=== PATIENT | female | born 2000 | race Caucasian/White ===

== ENCOUNTER 2024-01-18 06:35 | Inpatient (IN) | payer OTHER ==
[2024-01-18] MEDS ORDERED: Ondansetron 4 MG/2 ML SDV IVPUSH PRN (06:42)
[2024-01-18] MEDS ORDERED: Sodium Chloride 0.9% 10 ML Syringe FLUSH PRN (06:42)
[2024-01-18] MEDS ORDERED: Lactated Ringers 1,000 ML IV SCH (06:45)
[2024-01-18 07:12] LABS: BASOPHILS ABSOLUTE AUTO 0.1 K/mm3 (0.0-0.2); BASOPHILS PERCENT AUTO 0.3 % (0.0-1.0); EOSINOPHILS ABSOLUTE AUTO 0.2 K/mm3 (0.0-0.4); EOSINOPHILS PERCENT AUTO 1.2 % (0.0-6.0); HEMATOCRIT 37.5 % (37.0-47.0); HEMOGLOBIN 12.7 gm/dl (12.0-16.0); IMMATURE GRAN ABSOLUTE AUTO 0.08 K/mm3 (0.00-0.05); IMMATURE GRAN PERCENT AUTO 0.5 % (0.0-0.4); LYMPHOCYTES ABSOLUTE AUTO 3.2 K/mm3 (1.0-4.8); LYMPHOCYTES PERCENT AUTO 21.2 % (24.0-44.0); MEAN CORPUSCULAR HEMOGLOBIN 30.8 pg (28.0-32.0); MEAN CORPUSCULAR HGB CONC 33.9 g/dl (32.0-36.0); MEAN CORPUSCULAR VOLUME 90.8 fl (83.0-99.0); MEAN PLATELET VOLUME 10.6 fl (9.4-12.3); MONOCYTES ABSOLUTE AUTO 1.6 K/mm3 (0.0-0.8); MONOCYTES PERCENT AUTO 10.6 % (0.0-8.0); NEUTROPHILS PERCENT AUTO 66.2 % (41.0-71.0); PLATELET COUNT,PLT 225 K/mm3 (150-400); RED BLOOD CELL COUNT 4.13 M/mm3 (4.10-5.30); WHITE BLOOD CELL COUNT,WBC 15.09 K/mm3 (3.9-11.3)
[2024-01-18 07:30] LABS: SLIDE REVIEW ABNORMAL SMEAR
[2024-01-18] MEDS: Nalbuphine 10 MG/ML Syringe IVPUSH PRN (11:25)
[2024-01-18] MEDS: Sodium Chloride 0.9% 10 ML Syringe FLUSH SCH (11:42)
[2024-01-18] MEDS ORDERED: Acetaminophen 325 MG Tab PO PRN (15:23)
[2024-01-18] MEDS: Oxytocin/0.9 % Sodium Chloride 30 UNIT/500 ML BAG IV SCH (15:40)
[2024-01-18] MEDS: Lidocaine 1% 50 ML MDV INJECT PRN (15:40)
[2024-01-18] MEDS: Benzocaine/Menthol 20%-0.5% Spray 78 GM Cannister TOP PRN (15:43)
[2024-01-18] MEDS: Witch Hazel Medicated Pads 40/Jar TOP PRN (15:44)
[2024-01-18] MEDS: Ibuprofen 600 MG Tab PO SCH (15:45)
[2024-01-19] MEDS: Docusate Sodium 100 MG Cap PO PRN (10:06)
[2024-01-19 15:13] VITALS: BP 119/81; PULSE 63
== END 2024-01-19 16:30 | disposition home or self-care (01) | DRG 807 ==
LOC: JD.OBCHECK 06:35 → JD.OB 06:41 → JD.OBCHECK 06:42 → OBSVTOIN 14:00 → JD.OB 14:01
PROVIDERS: ADMIT Obstetrics & Gynecology; ATTEND Obstetrics & Gynecology
PROC: 10E0XZZ Delivery of Products of Conception, External Approach (ICD-10-PCS; principal; 2024-01-18)
PROC: 0KQM0ZZ Repair Perineum Muscle, Open Approach (ICD-10-PCS; 2024-01-18)
DX: O70.1 Second degree perineal laceration during delivery (principal); Z37.0 Single live birth; Z3A.39 39 weeks gestation of pregnancy; Z91.048 Other nonmedicinal substance allergy status; Z98.890 Other specified postprocedural states
CPT/HCPCS: 36415; 59025; 59409; 85025; 86592; 86850; 86900; 86901; A9270-GY; J2001; J2300